=== PATIENT | male | born 1995 | race Caucasian/White ===

== ENCOUNTER 2017-05-22 16:13 | Emergency (ER) | payer OTHER | END 2017-05-22 16:15 | LOC: TRA 16:13 | PROC: 5A12012 Performance of Cardiac Output, Single, Manual (ICD-10-PCS; principal; 2017-05-22) | DX: I46.9 Cardiac arrest, cause unspecified (principal); V47.5XXA Car driver injured in collision with fixed or stationary object in traffic accident, initial encounter; Y92.410 Unspecified street and highway as the place of occurrence of the external cause | CPT/HCPCS: 80048; 81003; 82150; 83690; 85025; 86850; 86900; 86901; 99281; 99285; G0480 ==